=== PATIENT | male | born 1995 | race Caucasian/White ===

== ENCOUNTER 2017-04-09 00:28 | Emergency (ER) | payer OTHER, BC ==
[2017-04-09] MEDS ORDERED: Acetaminophen 325 MG Tab PO ONE (00:51)
--- NOTE | 2017-04-09 01:21 | EDM.PDOC ---
ED HPI GENERAL MEDICAL PROBLEM - General Chief Complaint: General Stated Complaint: BREATHED IN BENZENE GAS; LIGHT-HEADED Time Seen by Provider: 04/09/17 01:00 Source of Information: Reports: Patient, RN - History of Present Illness INITIAL COMMENTS - FREE TEXT/NARRATIVE: Less than one hour prior to arrival he breathed in some benzene. He feels a headache some nausea and dizzy. No cough or dyspnea. no skin exposure head Pain Score (Numeric/FACES): 8 - Related Data Allergies Allergy/AdvReac Type Severity Reaction Status Date / Time No Known Allergies Allergy Verified 04/09/17 00:33 Home Meds: Home Meds . [No Known Home Meds] 02/07/17 [History] Past Medical History - Past Health History Medical/Surgical History: Denies Medical/Surgical History HEENT History: Reports: None Cardiovascular History: Reports: None Respiratory History: Reports: None Gastrointestinal History: Reports: None Genitourinary History: Reports: None Musculoskeletal History: Reports: None Neurological History: Reports: None Psychiatric History: Reports: None Endocrine/Metabolic History: Reports: None - Infectious Disease History Infectious Disease History: Reports: None - Past Surgical History Male Surgical History: Reports: None Social & Family History - Family History Family Medical History: Noncontributory - Tobacco Use Smoking Status *Q: Current Every Day Smoker Years of Tobacco use: 4 Packs/Tins Daily: 1 - Caffeine Use Caffeine Use: Reports: Coffee - Recreational Drug Use Recreational Drug Use: No ED ROS GENERAL - Review of Systems Review Of Systems: See Below (as per HPI) ED EXAM, GENERAL - Physical Exam Exam: See Below General Appearance: Alert, No Apparent Distress Head: Atraumatic Neck: Supple, Non-Tender Respiratory/Chest: No Respiratory Distress, Lungs Clear, Normal Breath Sounds, No Accessory Muscle Use Cardiovascular: Regular Rate, Rhythm GI/Abdominal: Non-Tender Psychiatric: Normal Mood Course - Vital Signs Last Recorded V/S: Last Vital Signs Temp 97.1 F 04/09/17 00:34 Pulse 82 04/09/17 00:50 Resp 16 04/09/17 00:50 BP 128/88 04/09/17 00:50 Pulse Ox 97 04/09/17 00:50 - Orders/Labs/Meds Orders: Active Orders 24 hr Category Date Time Status Chest 2V [CR] Stat Exams 04/09/17 01:08 Taken Meds: Medications Discontinued Medications Generic Name Dose Route Start Last Admin Trade Name Ally PRDanette Reason Stop Dose Admin Acetaminophen 650 mg 04/09/17 00:51 04/09/17 01:25 Tylenol PO 04/09/17 00:52 650 mg NOW ONE Administration - Re-Assessments/Exams Free Text/Narrative Re-Assessment/Exam: 04/09/17 01:58 I discussed the importance of avoiding further benzene exposure as it may be carcinogenic. He has no respiratory symptoms or tachycardia. He has a very mild headache I advised that he may rest at home and return to work later today after 4 pm Departure - Departure Time of Disposition: 01:59 Disposition: Home, Self-Care 01 Condition: Good Clinical Impression: Toxin exposure - Discharge Information Referrals: PCP,None [Primary Care Provider] - Forms: ED Department Discharge Additional Instructions: go home and rest tylenol as needed for headache recheck if not better in 12 hours. avoid further benzene exposure - My Orders Last 24 Hours: My Active Orders 04/09/17 01:08 Chest 2V [CR] Stat - Assessment/Plan Last 24 Hours: My Active Orders 04/09/17 01:08 Chest 2V [CR] Stat
[2017-04-09 02:18] VITALS: BP 120/76
--- NOTE | 2017-04-09 13:26 | CR ---
EXAM DATE: 04/09/17 PATIENT'S AGE: 21 Patient: MALIKA DE GUZMAN Facility: [place], [place] Site . Site : 1995 Study: XRay Chest [id number] 1:36:19 AM Ordering Physician: Doctor Tenorio Final Report: INDICATION: gas exposure TECHNIQUE: Chest radiograph 2 views COMPARISON: None FINDINGS: Cardiovascular and mediastinum: The cardiac silhouette is normal in appearance and size. Mediastinum is within normal limits. Lungs and pleural spaces: Both lungs are unremarkable in appearance. No sign of pleural effusion. No pneumothorax is seen. Bones and soft tissues: No significant findings. IMPRESSION: 1. No acute cardiopulmonary disease seen. Dictated by: Jose Antonio Chavez MD @ 04/09/2017 01:37:31 (Electronic Signature) Report Signed by Proxy. [email or web address]
== END 2017-04-09 02:14 | disposition home or self-care (01) ==
LOC: MW.ED 00:28
DX: Z77.021 Contact with and (suspected) exposure to benzene (principal); R51 Headache; R11.0 Nausea; F17.210 Nicotine dependence, cigarettes, uncomplicated
CPT/HCPCS: 71020; 99283; A9270; 99282